=== PATIENT | female | born 1940 | race Hispanic/Latino ===

== ENCOUNTER 2018-03-12 21:28 | Emergency (ER) | payer MEDICARE ==
--- NOTE | 2018-03-12 22:06 | CT ---
CT BRAIN WITHOUT CONTRAST 03/12/18 HISTORY: Dizziness. COMPARISON: None. FINDINGS: No acute territorial infarct or hemorrhage. No midline shift or mass effect. Ventricular size and ext ra-axial CSF spaces are normal. The paranasal sinuses and mastoids are clear. IMPRESSION: No acute intracranial abnormality. POS: [facility]
[2018-03-12 22:19] LABS: #Eosinphils 0.1 thou/uL (0.0-0.7); #Lymphocytes 1.4 thou/uL (1.20-3.40); #Monocytes 0.3 thou/uL (0.11-0.59); #Neutrophils 3.2 thou/uL (1.40-6.50); %Basophils 0.2 % (0.0-1.0); %Eosinophils 1.8 % (0.0-10.0); %Lymphocytes 27.7 % (21.0-51.0); %Monocytes 6.7 % (0.0-10.0); %Neutrophils 63.6 % (42.0-75.0); Hemoglobin 13.2 g/dL (12.0-16.0); Mean Corpuscular HGB CONC 34.3 g/dL (32.0-36.0); Mean Corpuscular Hemoglobin 31.4 pg (27.0-31.0); Mean Corpuscular Volume 91.8 fl (81.0-99.0); Mean Platelet Volume 6.9 fL (7.4-10.4); Platelet Count 200 thou/uL (130-400); RBC Distribution Width 12.2 % (11.5-14.5); Red Blood Cell (RBC) Count 4.19 mill/uL (4.20-5.40)
[2018-03-12 22:37] LABS: ALT (SGPT) 12 U/L (8-55); AST (SGOT) 17 U/L (5-34); Albumin 4.5 g/dL (3.4-4.8); Alkaline Phosphatase 78 U/L (40-150); Anion Gap 16 mmol/L (10-20); BUN (Urea Nitrogen) 20 mg/dL (9.8-20.1); Bilirubin, Total 0.4 mg/dL (0.2-1.2); CK (CPK) 122 U/L (29-168); Calc. Creatinine Clearance 0 mL/min (70-130); Calcium 9.7 mg/dL (7.8-10.44); Carbon Dioxide 21 mmol/L (23-31); Chloride 103 mmol/L (98-107); Estimated GFR-MDRD 48; Glucose 141 mg/dL (83-110); Potassium 3.8 mmol/L (3.5-5.1); Protein, Total 7.5 g/dL (6.0-8.3); Sodium 136 mmol/L (136-145)
[2018-03-12 22:42] LABS: CKMB 2.2 ng/mL (0-6.6); Troponin I Less than 0.010 ng/mL (< 0.028)
== END 2018-03-12 23:20 | disposition home or self-care (01) ==
LOC: ERS 21:28
DX: R42 Dizziness and giddiness (principal); I10 Essential (primary) hypertension; E78.5 Hyperlipidemia, unspecified; I48.91 Unspecified atrial fibrillation; E11.9 Type 2 diabetes mellitus without complications; Z79.84 Long term (current) use of oral hypoglycemic drugs; Z79.899 Other long term (current) drug therapy
CPT/HCPCS: 36415; 70450; 80053; 82550; 82553; 84484; 85025

== ENCOUNTER 2018-07-30 12:48 | Emergency (ER) | payer MEDICARE ==
[2018-07-30] MEDS ORDERED: hydrOXYzine 25 MG TAB ONE (14:48)
== END 2018-07-30 14:49 | disposition home or self-care (01) ==
LOC: ERS 12:48
DX: S20.362A Insect bite (nonvenomous) of left front wall of thorax, initial encounter (principal); S20.361A Insect bite (nonvenomous) of right front wall of thorax, initial encounter; S40.861A Insect bite (nonvenomous) of right upper arm, initial encounter; B86 Scabies; E78.5 Hyperlipidemia, unspecified; I48.91 Unspecified atrial fibrillation; E11.9 Type 2 diabetes mellitus without complications; W57.XXXA Bitten or stung by nonvenomous insect and other nonvenomous arthropods, initial encounter
CPT/HCPCS: 99282

== ENCOUNTER 2018-08-02 00:20 | Emergency (ER) | payer MEDICARE, OTHER ==
[2018-08-02] MEDS ORDERED: diphenhydrAMINE 25 MG CAP ONE (00:49)
--- NOTE | 2018-08-02 08:28 | RAD ---
NECK SOFT TISSUES: Date: 08/02/18 HISTORY: Difficulty swallowing. COMPARISON: None. FINDINGS: Two views of the neck soft tissues shows no evidence of radiopaque foreign body. No prevertebral soft tissue swelling is seen. The epiglottis is normal in thickness without significant thickening. Mild degenerative changes are seen in the lower cervical spine. IMPRESSION: No significant soft tissue abnormality of the neck. POS: [facility]
== END 2018-08-02 01:55 | disposition home or self-care (01) ==
LOC: ERS 00:20
DX: F45.8 Other somatoform disorders (principal); I10 Essential (primary) hypertension; I48.91 Unspecified atrial fibrillation; E11.9 Type 2 diabetes mellitus without complications; Z79.84 Long term (current) use of oral hypoglycemic drugs; Z79.899 Other long term (current) drug therapy
CPT/HCPCS: 70360

== ENCOUNTER 2018-08-07 13:37 | Emergency (ER) | payer MEDICARE, OTHER ==
[2018-08-07 15:20] LABS: Bilirubin Negative (Negative); Blood, Urine Negative (Negative); Clarity CLEAR (Clear); Glucose, Urine (Dipstick) Negative (Negative); Leukocyte Negative (Negative); Nitrite Negative (Negative); Protein, Urine (Dipstick) Negative (Neg-Trace); Specific Gravity, Urine 1.008 (1.002-1.036); Urobilinogen 0.2 mg/dL (0.2-1.0)
[2018-08-07] MEDS ORDERED: hydrOXYzine 25 MG TAB PO SCH (15:30)
[2018-08-07 15:32] LABS: #Eosinphils 0.2 thou/uL (0.0-0.7); #Lymphocytes 1.4 thou/uL (1.20-3.40); #Monocytes 0.5 thou/uL (0.11-0.59); #Neutrophils 4.2 thou/uL (1.40-6.50); %Basophils 0.8 % (0.0-1.0); %Eosinophils 2.7 % (0.0-10.0); %Monocytes 7.2 % (0.0-10.0); %Neutrophils 67.3 % (42.0-75.0); Hemoglobin 14.5 g/dL (12.0-16.0); Mean Corpuscular Hemoglobin 31.2 pg (27.0-31.0); Mean Corpuscular Volume 94.7 fL (78.0-98.0); Mean Platelet Volume 7.2 fL (7.4-10.4); Platelet Count 256 thou/uL (130-400); RBC Distribution Width 12.1 % (11.5-14.5); Red Blood Cell (RBC) Count 4.64 mill/uL (4.20-5.40); White Blood Cell (WBC) Count 6.2 thou/uL (4.8-10.8)
[2018-08-07 15:53] LABS: ALT (SGPT) 20 U/L (8-55); AST (SGOT) 21 U/L (5-34); Albumin 4.7 g/dL (3.4-4.8); Alkaline Phosphatase 76 U/L (40-150); Anion Gap 13 mmol/L (10-20); BUN (Urea Nitrogen) 15 mg/dL (9.8-20.1); Bilirubin, Total 0.2 mg/dL (0.2-1.2); Calc. Creatinine Clearance 0 mL/min (70-130); Calcium 9.9 mg/dL (7.8-10.44); Carbon Dioxide 26 mmol/L (23-31); Chloride 99 mmol/L (98-107); Estimated GFR-MDRD 55; Globulin 3.2 g/dL (2.4-3.5); Glucose 117 mg/dL (83-110); Potassium 5.3 mmol/L (3.5-5.1); Protein, Total 7.9 g/dL (6.0-8.3); Sodium 133 mmol/L (136-145)
--- NOTE | 2018-08-07 16:03 | CT ---
CT OF BRAIN PERFORMED WITHOUT CONTRAST ENHANCEMENT: 08/07/18 HISTORY: Altered mental status, confusion. COMPARISON: 03/12/18 study. There is mild ventricular and sulcal prominence. This is fairly age appropriate. There is no signs of intracerebral hemorrhage or extra-axial fluid collections. Mastoid air cells and visualized sinuses are clear. IMPRESSION: No acute intracranial abnormalities. POS: [facility]
== END 2018-08-07 16:36 | disposition home or self-care (01) ==
LOC: ERS 13:37
DX: L29.9 Pruritus, unspecified (principal); B86 Scabies; R41.0 Disorientation, unspecified; I10 Essential (primary) hypertension; E78.5 Hyperlipidemia, unspecified; I48.91 Unspecified atrial fibrillation; E11.9 Type 2 diabetes mellitus without complications; Z79.899 Other long term (current) drug therapy; Z79.84 Long term (current) use of oral hypoglycemic drugs
CPT/HCPCS: 36415; 70450; 80053; 81003; 85025

== ENCOUNTER 2019-07-15 08:02 | Emergency (ER) | payer MEDICARE, OTHER ==
[2019-07-15 08:51] LABS: Anion Gap 13 mmol/L (10-20); BUN (Urea Nitrogen) 12 mg/dL (9.8-20.1); Calc. Creatinine Clearance 0 mL/min (70-130); Calcium 9.8 mg/dL (7.8-10.44); Carbon Dioxide 23 mmol/L (23-31); Chloride 104 mmol/L (98-107); Estimated GFR-MDRD 66; Glucose 130 mg/dL (83-110); Sodium 136 mmol/L (136-145)
== END 2019-07-15 09:14 ==
LOC: ERS 08:02
DX: Z00.00 Encounter for general adult medical examination without abnormal findings (principal); I10 Essential (primary) hypertension; I48.91 Unspecified atrial fibrillation; E11.9 Type 2 diabetes mellitus without complications; E78.5 Hyperlipidemia, unspecified
CPT/HCPCS: 36415; 80048; 99284

== ENCOUNTER 2019-07-17 03:34 | Emergency (ER) | payer MEDICARE ==
--- NOTE | 2019-07-17 07:47 | RAD ---
Chest 2 views HISTORY: Hemoptysis. COMPARISON: 03/05/2012. FINDINGS: Cardiac silhouette and pulmonary vasculature are unremarkable. Mediastinum is midline with aortic calcification. No confluent airspace consolidation, pneumothorax, or pleural fluid evident. Degenerative changes of thoracic spine have progressed. Chronic appearing compression of the superior endplates of the upper lumbar spine. IMPRESSION: No active cardiopulmonary abnormalities are demonstrated.
== END 2019-07-17 05:30 | disposition home or self-care (01) ==
LOC: ERS 03:34
DX: J18.9 Pneumonia, unspecified organism (principal); R04.2 Hemoptysis; I10 Essential (primary) hypertension; E78.5 Hyperlipidemia, unspecified; I49.9 Cardiac arrhythmia, unspecified; I48.91 Unspecified atrial fibrillation; E11.9 Type 2 diabetes mellitus without complications
CPT/HCPCS: 71046

== ENCOUNTER 2019-08-24 02:10 | Emergency (ER) | payer MEDICARE ==
[2019-08-24 03:05] LABS: #Basophils 0.1 thou/uL (0.0-0.2); #Eosinphils 0.1 thou/uL (0.0-0.7); #Lymphocytes 1.4 thou/uL (1.20-3.40); #Monocytes 0.3 thou/uL (0.11-0.59); #Neutrophils 1.8 thou/uL (1.40-6.50); %Basophils 1.5 % (0.0-1.0); %Eosinophils 3.8 % (0.0-10.0); %Monocytes 9.2 % (0.0-10.0); %Neutrophils 48.5 % (42.0-75.0); Hemoglobin 12.5 g/dL (12.0-16.0); Mean Corpuscular HGB CONC 33.7 g/dL (32.0-36.0); Mean Corpuscular Hemoglobin 31.2 pg (27.0-31.0); Mean Corpuscular Volume 92.4 fL (78.0-98.0); Mean Platelet Volume 7.3 fL (7.4-10.4); Platelet Count 197 thou/uL (130-400); RBC Distribution Width 12.2 % (11.5-14.5); Red Blood Cell (RBC) Count 4.02 mill/uL (4.20-5.40); White Blood Cell (WBC) Count 3.7 thou/uL (4.8-10.8)
[2019-08-24 03:27] LABS: ALT (SGPT) 13 U/L (8-55); AST (SGOT) 20 U/L (5-34); Albumin 4.3 g/dL (3.4-4.8); Alkaline Phosphatase 51 U/L (40-110); Anion Gap 15 mmol/L (10-20); BUN (Urea Nitrogen) 14 mg/dL (9.8-20.1); Bilirubin, Total 0.7 mg/dL (0.2-1.2); Calc. Creatinine Clearance 0 mL/min (70-130); Calcium 9.8 mg/dL (7.8-10.44); Carbon Dioxide 21 mmol/L (23-31); Chloride 103 mmol/L (98-107); Estimated GFR-MDRD 66; Globulin 2.8 g/dL (2.4-3.5); Glucose 120 mg/dL (83-110); Potassium 4.3 mmol/L (3.5-5.1); Protein, Total 7.1 g/dL (6.0-8.3); Sodium 135 mmol/L (136-145)
--- NOTE | 2019-08-24 07:51 | RAD ---
XR Chest 1 View Portable HISTORY: Palpitations COMPARISON: 07/17/2019 FINDINGS: The heart size is normal. The lungs are well expanded without focal areas of consolidation, pneumothorax or pleural effusions. IMPRESSION: No radiographic evidence of acute cardiopulmonary process.
== END 2019-08-24 03:50 | disposition home or self-care (01) ==
LOC: ERS 02:10
DX: R00.2 Palpitations (principal); I48.91 Unspecified atrial fibrillation; E11.9 Type 2 diabetes mellitus without complications; Z79.82 Long term (current) use of aspirin
CPT/HCPCS: 71045; 80053; 84484; 85025; 93005

== ENCOUNTER 2019-08-26 17:02 | Emergency (ER) | payer MEDICARE ==
[2019-08-26 18:02] LABS: #Eosinphils 0.1 thou/uL (0.0-0.7); #Lymphocytes 1.8 thou/uL (1.20-3.40); #Monocytes 0.4 thou/uL (0.11-0.59); #Neutrophils 2.4 thou/uL (1.40-6.50); %Basophils 0.2 % (0.0-1.0); %Eosinophils 2.4 % (0.0-10.0); %Lymphocytes 37.9 % (21.0-51.0); %Monocytes 8.1 % (0.0-10.0); %Neutrophils 51.5 % (42.0-75.0); Mean Corpuscular Hemoglobin 30.6 pg (27.0-31.0); Mean Platelet Volume 7.9 fL (7.4-10.4); Platelet Count 205 thou/uL (130-400); RBC Distribution Width 12.2 % (11.5-14.5); Red Blood Cell (RBC) Count 3.93 mill/uL (4.20-5.40); White Blood Cell (WBC) Count 4.7 thou/uL (4.8-10.8)
--- NOTE | 2019-08-26 18:08 | RAD ---
XR Chest 1 View Portable History: Chest pain Comparison: Radiograph 2 days prior Findings: The aorta is tortuous. Heart size is normal. No pneumothorax. No effusion. No acute osseous abnormality. Impression: No acute intrathoracic abnormality.
[2019-08-26 18:55] LABS: Bilirubin Negative (Negative); Blood, Urine Negative (Negative); Clarity Clear (Clear); Glucose, Urine (Dipstick) Normal (Negative); Leukocyte Negative Leu/uL (Negative); Nitrite Negative (Negative); Protein, Urine (Dipstick) Negative (Neg-Trace); Urobilinogen Normal mg/dL (Less than 2)
[2019-08-26 19:49] LABS: Albumin 4.6 g/dL (3.4-4.8)
[2019-08-26 19:50] LABS: Chloride 101 mmol/L (98-107); Potassium 4.4 mmol/L (3.5-5.1); Sodium 136 mmol/L (136-145)
[2019-08-26 19:51] LABS: Calcium 9.9 mg/dL (7.8-10.44)
[2019-08-26 19:52] LABS: Globulin 2.8 g/dL (2.4-3.5); Glucose 113 mg/dL (83-110); Protein, Total 7.4 g/dL (6.0-8.3)
[2019-08-26 19:53] LABS: Anion Gap 9 mmol/L (10-20); Bilirubin, Total 0.3 mg/dL (0.2-1.2); Carbon Dioxide 30 mmol/L (23-31)
[2019-08-26 19:54] LABS: Alkaline Phosphatase 75 U/L (40-110)
[2019-08-26 19:55] LABS: Calc. Creatinine Clearance 0 mL/min (70-130); Estimated GFR-MDRD 71
[2019-08-26 19:56] LABS: BUN (Urea Nitrogen) 16 mg/dL (9.8-20.1)
[2019-08-26 19:57] LABS: ALT (SGPT) 12 U/L (8-55); AST (SGOT) 16 U/L (5-34)
[2019-08-26 19:58] LABS: CK (CPK) 71 U/L (29-168); Lipase 11 U/L (8-78)
== END 2019-08-26 20:33 | disposition home or self-care (01) ==
LOC: ERS 17:02
DX: I48.20 Chronic atrial fibrillation, unspecified (principal); E11.9 Type 2 diabetes mellitus without complications; E78.5 Hyperlipidemia, unspecified; I10 Essential (primary) hypertension; Z79.84 Long term (current) use of oral hypoglycemic drugs; Z79.899 Other long term (current) drug therapy
CPT/HCPCS: 36415; 71045; 80053; 81003; 82550; 83690; 83735; 84484; 85025; 93005; 94760

== ENCOUNTER 2022-02-01 10:14 | Observation (INO) | payer MEDICARE, OTHER ==
[2022-02-01 10:49] LABS: #Lymphocytes 1.4 thou/uL (1.20-3.40); #Monocytes 0.3 thou/uL (0.11-0.59); #Neutrophils 2.8 thou/uL (1.40-6.50); %Basophils 0.3 % (0.0-1.0); %Lymphocytes 30.3 % (21.0-51.0); %Monocytes 7.1 % (0.0-10.0); %Neutrophils 61.3 % (42.0-75.0); Hemoglobin 13.9 g/dL (12.0-16.0); Mean Corpuscular HGB CONC 33.7 g/dL (32.0-36.0); Mean Corpuscular Volume 95.1 fL (78.0-98.0); Mean Platelet Volume 7.8 fL (7.4-10.4); Platelet Count 204 thou/uL (130-400); RBC Distribution Width 12.1 % (11.5-14.5); Red Blood Cell (RBC) Count 4.35 mill/uL (4.20-5.40); White Blood Cell (WBC) Count 4.5 thou/uL (4.8-10.8)
[2022-02-01 11:09] LABS: Acetaminophen Less than 10.0 mcg/mL (10.0-30.0); Alcohol Less than 10 mg/dL (Less than 10); Salicylate Less than 8.0 mg/dL (15.0-30.0)
[2022-02-01 11:12] LABS: ALT (SGPT) 13 U/L (8-55); AST (SGOT) 22 U/L (5-34); Albumin 4.3 g/dL (3.4-4.8); Alkaline Phosphatase 62 U/L (40-110); Anion Gap 17 mmol/L (10-20); BUN (Urea Nitrogen) 16 mg/dL (9.8-20.1); Bilirubin, Total 0.5 mg/dL (0.2-1.2); Calc. Creatinine Clearance 0 mL/min (70-130); Calcium 9.3 mg/dL (7.8-10.44); Carbon Dioxide 22 mmol/L (23-31); Chloride 101 mmol/L (98-107); Globulin 2.9 g/dL (2.4-3.5); Glucose 209 mg/dL (83-110); Lipase 7 U/L (8-78); Potassium 4.5 mmol/L (3.5-5.1); Protein, Total 7.2 g/dL (5.8-8.1); Sodium 135 mmol/L (136-145)
[2022-02-01 11:33] LABS: Bacteria/HPF None Seen HPF (None Seen); Bilirubin Negative (Negative); Blood, Urine Negative (Negative); Clarity Clear (Clear); Glucose, Urine (Dipstick) Normal (Negative); Ketone, Urine Negative (Negative); Leukocyte 75 Leu/uL (Negative); Nitrite Negative (Negative); Protein, Urine (Dipstick) Negative (Neg-Trace); RBC/HPF 0-3 HPF (0-3); Specific Gravity, Urine 1.014 (1.002-1.036); Squamous Epithelial 0-3 HPF (0-3); Urobilinogen Normal mg/dL (Less than 2); pH, Urine 6.5 (5.0-9.0)
[2022-02-01 11:39] LABS: Amphetamine Not Detected (NotDetected); Barbiturates Screen Not Detected (NotDetected); Benzodiazepine Screen Not Detected (NotDetected); Cocaine Metabolite Screen Not Detected (NotDetected); Methadone Not Detected (NotDetected); Methamphetamine Not Detected (NotDetected); Opiate Screen Not Detected (NotDetected); Oxycodone Screen Not Detected (NotDetected); Phencyclidine (PCP) Not Detected (NotDetected); THC/Cannabinoid Screen Not Detected (NotDetected); Tricyclic Screen Not Detected (NotDetected)
[2022-02-01] MEDS ORDERED: Aspirin Chewable 81 MG TAB ONE (12:16)
[2022-02-01] MEDS ORDERED: Acetaminophen 325 MG TAB PO PRN (13:26)
[2022-02-01] MEDS ORDERED: Senokot S 8.6-50 MG TAB PO PRN (13:26)
[2022-02-01] MEDS ORDERED: Calcium Carbonate 500 MG ChewTAB PO PRN (13:26)
[2022-02-01] MEDS ORDERED: Sodium Chloride 0.9% 1,000 ML IV SCH (13:30)
[2022-02-01] MEDS ORDERED: Nitroglycerin 0.4 MG TAB (25 Tab Bottle) SL PRN (13:34)
[2022-02-01 14:09] VITALS: BMI 26.7
[2022-02-01] MEDS ORDERED: Dextrose 5% in Water 1,000 ML IV PRN (14:18)
[2022-02-01] MEDS ORDERED: Insulin Regular 300 UNITS/3 ML VIAL SC PRN ×2 (14:18)
[2022-02-01] MEDS ORDERED: Dextrose 50% Abboject 50 ML SYRINGE SLOW IVP PRN (14:18)
[2022-02-01 14:28] LABS: Phosphorus 3.4 mg/dL (2.3-4.7)
[2022-02-01 14:46] LABS: Thyroid Stimulating Hormone 0.7675 uIU/mL (0.35-4.94)
[2022-02-01] MEDS ORDERED: Ondansetron ODT 4 MG TAB PO PRN (15:05)
[2022-02-01] MEDS ORDERED: Ondansetron PF 4 MG/2 ML Vial IVP PRN (15:05)
[2022-02-01 17:06] LABS: Troponin I Less than 0.010 ng/mL (< 0.028)
[2022-02-01] MEDS ORDERED: Cyanocobalamin (Vitamin B-12) 1,000 MCG TAB PO SCH (21:00)
[2022-02-01 23:59] LABS: SARS-CoV-2 PCR by NAA Not Detected (NotDetected)
[2022-02-02 05:12] LABS: #Eosinphils 0.1 thou/uL (0.0-0.7); #Lymphocytes 1.4 thou/uL (1.20-3.40); #Monocytes 0.3 thou/uL (0.11-0.59); #Neutrophils 2.8 thou/uL (1.40-6.50); %Basophils 0.3 % (0.0-1.0); %Eosinophils 1.8 % (0.0-10.0); %Lymphocytes 30.1 % (21.0-51.0); %Monocytes 7.1 % (0.0-10.0); %Neutrophils 60.7 % (42.0-75.0); Hemoglobin 13.3 g/dL (12.0-16.0); Mean Corpuscular HGB CONC 31.8 g/dL (32.0-36.0); Mean Corpuscular Hemoglobin 30.7 pg (27.0-31.0); Mean Corpuscular Volume 96.7 fL (78.0-98.0); Mean Platelet Volume 7.4 fL (7.4-10.4); Platelet Count 214 thou/uL (130-400); RBC Distribution Width 12.1 % (11.5-14.5); Red Blood Cell (RBC) Count 4.33 mill/uL (4.20-5.40); White Blood Cell (WBC) Count 4.6 thou/uL (4.8-10.8)
[2022-02-02 05:35] LABS: Anion Gap 13 mmol/L (10-20); BUN (Urea Nitrogen) 12 mg/dL (9.8-20.1); Calc. Creatinine Clearance 61 mL/min (70-130); Calcium 9.5 mg/dL (7.8-10.44); Carbon Dioxide 26 mmol/L (23-31); Chloride 104 mmol/L (98-107); Glucose 115 mg/dL (83-110); Potassium 4.6 mmol/L (3.5-5.1); Sodium 138 mmol/L (136-145)
[2022-02-02 09:00] VITALS: BP 163/81; TEMP 96.9
[2022-02-02] MEDS ORDERED: Aspirin 81 mg Enteric Coated Tablet PO SCH (09:00)
[2022-02-02] MEDS ORDERED: Enoxaparin Sodium 40 MG/0.4 ML SYRINGE SC SCH (09:00)
== END 2022-02-02 11:21 | disposition home or self-care (01) ==
LOC: ERS 10:14 → NEURO 12:29
PROVIDERS: ADMIT Internal Medicine; ATTEND Internal Medicine
DX: R55 Syncope and collapse (principal); I12.9 Hypertensive chronic kidney disease with stage 1 through stage 4 chronic kidney disease, or unspecified chronic kidney disease; E11.22 Type 2 diabetes mellitus with diabetic chronic kidney disease; N18.2 Chronic kidney disease, stage 2 (mild); E87.1 Hypo-osmolality and hyponatremia; E78.5 Hyperlipidemia, unspecified; G30.9 Alzheimer's disease, unspecified; F02.80 Dementia in other diseases classified elsewhere, unspecified severity, without behavioral disturbance, psychotic disturbance, mood disturbance, and anxiety; I08.3 Combined rheumatic disorders of mitral, aortic and tricuspid valves; Z79.82 Long term (current) use of aspirin; Z79.899 Other long term (current) drug therapy; Z88.0 Allergy status to penicillin; Z88.1 Allergy status to other antibiotic agents; Z88.4 Allergy status to anesthetic agent; Z88.8 Allergy status to other drugs, medicaments and biological substances; Z20.822 Contact with and (suspected) exposure to COVID-19
CPT/HCPCS: 36415; 36416; 70450; 71045; 80048; 80053; 80306; 80307; 81003; 81015; 82607; 82746; 83690; 83735; 84100; 84146; 84443; 84484; 85025; 87086; 93005; 93306; 93880; G0378; J7050; Q0162; U0003; U0005

== ENCOUNTER 2022-02-28 09:05 | Emergency (ER) | payer MEDICARE, OTHER ==
[2022-02-28 09:45] LABS: #Monocytes 0.2 thou/uL (0.11-0.59); #Neutrophils 3.2 thou/uL (1.40-6.50); %Basophils 0.2 % (0.0-1.0); %Lymphocytes 22.2 % (21.0-51.0); %Monocytes 5.2 % (0.0-10.0); %Neutrophils 71.3 % (42.0-75.0); Hemoglobin 13.6 g/dL (12.0-16.0); Mean Corpuscular HGB CONC 31.7 g/dL (32.0-36.0); Mean Corpuscular Hemoglobin 30.7 pg (27.0-31.0); Mean Corpuscular Volume 96.8 fL (78.0-98.0); Mean Platelet Volume 7.3 fL (7.4-10.4); Platelet Count 217 thou/uL (130-400); Red Blood Cell (RBC) Count 4.42 mill/uL (4.20-5.40); White Blood Cell (WBC) Count 4.5 thou/uL (4.8-10.8)
[2022-02-28 10:06] LABS: Anion Gap 13 mmol/L (10-20); BUN (Urea Nitrogen) 14 mg/dL (9.8-20.1); Calc. Creatinine Clearance 0 mL/min (70-130); Carbon Dioxide 24 mmol/L (23-31); Chloride 99 mmol/L (98-107); Potassium 4.1 mmol/L (3.5-5.1); Sodium 132 mmol/L (136-145)
[2022-02-28 10:07] LABS: ALT (SGPT) 12 U/L (8-55); AST (SGOT) 12 U/L (5-34); Albumin 4.2 g/dL (3.4-4.8); Alkaline Phosphatase 68 U/L (40-110); Bilirubin, Total 0.5 mg/dL (0.2-1.2); CK (CPK) 59 U/L (29-168); Calcium 9.4 mg/dL (7.8-10.44); Globulin 2.9 g/dL (2.4-3.5); Glucose 216 mg/dL (83-110); Magnesium 1.9 mg/dL (1.6-2.6); Protein, Total 7.1 g/dL (5.8-8.1)
[2022-02-28 10:37] LABS: Bilirubin Negative (Negative); Blood, Urine Negative (Negative); Clarity Clear (Clear); Glucose, Urine (Dipstick) 50 mg/dL (Negative); Ketone, Urine Negative (Negative); Leukocyte Negative Leu/uL (Negative); Nitrite Negative (Negative); Protein, Urine (Dipstick) Negative (Neg-Trace); Specific Gravity, Urine 1.014 (1.002-1.036); Urobilinogen Normal mg/dL (Less than 2); pH, Urine 6.5 (5.0-9.0)
== END 2022-02-28 11:24 | disposition home or self-care (01) ==
LOC: ERS 09:05
DX: R42 Dizziness and giddiness (principal); E11.9 Type 2 diabetes mellitus without complications; E87.1 Hypo-osmolality and hyponatremia; I48.91 Unspecified atrial fibrillation; E78.5 Hyperlipidemia, unspecified; I10 Essential (primary) hypertension; G30.9 Alzheimer's disease, unspecified; F02.80 Dementia in other diseases classified elsewhere, unspecified severity, without behavioral disturbance, psychotic disturbance, mood disturbance, and anxiety; Z79.82 Long term (current) use of aspirin
CPT/HCPCS: 36415; 36416; 51701; 80053; 81003; 82550; 83735; 85025; 93005; 96360

== ENCOUNTER 2022-09-25 15:50 | Inpatient (IN) | payer MEDICARE, MEDICAID ==
[2022-09-25] MEDS ORDERED: Ondansetron PF 4 MG/2 ML Vial IVP PRN (16:17)
[2022-09-25] MEDS ORDERED: TETANUS, DIPHTHERIA TOX,ADULT (TDVAX) 0.5 ML VIAL IM ONE (16:17)
[2022-09-25] MEDS ORDERED: hydrALAZINE 20 MG/ML VIAL SLOW IVP PRN ×3 (16:34→17:54)
[2022-09-25] MEDS ORDERED: Morphine 2 MG/ML VIAL SLOW IVP PRN (17:54)
[2022-09-25 18:14] VITALS: BMI 26.7
[2022-09-25] MEDS: Acetaminophen 500 MG TAB PO SCH (18:31)
[2022-09-25] MEDS: Sodium Chloride 0.9% 1,000 ML IV SCH (18:31)
[2022-09-25] MEDS ORDERED: Lisinopril 5 MG TAB PO SCH (18:48)
[2022-09-25] MEDS ORDERED: Dextrose 50% Abboject 50 ML SYRINGE SLOW IVP PRN (21:06)
[2022-09-25] MEDS ORDERED: HumaLOG 300 UNITS/3 ML VIAL SC PRN (21:06)
[2022-09-25] MEDS ORDERED: Dextrose 5% in Water 1,000 ML IV PRN (21:06)
[2022-09-25] MEDS ORDERED: Amlodipine 5 MG TAB PO SCH (21:15)
[2022-09-25] MEDS: Senokot S 8.6-50 MG TAB PO SCH (22:24)
[2022-09-25] MEDS: Famotidine 20 MG TAB PO SCH (22:25)
[2022-09-25 23:49] LABS: Bacteria/HPF None Seen HPF (None Seen); Bilirubin Negative (Negative); Blood, Urine Negative (Negative); CAUTI Indications for Culture Alt mental st,lethar; Clarity Clear (Clear); Glucose, Urine (Dipstick) Normal (Negative); Ketone, Urine Trace mg/dL (Negative); Leukocyte Negative Leu/uL (Negative); Nitrite Negative (Negative); Protein, Urine (Dipstick) Negative (Neg-Trace); RBC/HPF 0-3 HPF (0-3); Specific Gravity, Urine 1.014 (1.002-1.036); Squamous Epithelial 0-3 HPF (0-3); Urobilinogen Normal mg/dL (Less than 2); WBC/HPF 0-3 HPF (0-3); pH, Urine 6.5 (5.0-9.0)
[2022-09-25 23:51] LABS: Urine Culture Reflex No No
[2022-09-26] MEDS: Acetaminophen 500 MG TAB PO SCH ×5 (00:02→17:51)
[2022-09-26 05:47] LABS: #Eosinphils 0.1 thou/uL (0.0-0.7); #Monocytes 0.4 thou/uL (0.11-0.59); #Neutrophils 3.9 thou/uL (1.40-6.50); %Basophils 0.1 % (0.0-1.0); %Eosinophils 1.3 % (0.0-10.0); %Lymphocytes 17.9 % (21.0-51.0); %Monocytes 7.4 % (0.0-10.0); %Neutrophils 73.3 % (42.0-75.0); Hemoglobin 12.8 g/dL (12.0-16.0); Mean Corpuscular HGB CONC 32.5 g/dL (32.0-36.0); Mean Corpuscular Hemoglobin 30.7 pg (27.0-31.0); Mean Corpuscular Volume 94.5 fl (78.0-98.0); Mean Platelet Volume 7.6 fL (7.4-10.4); Platelet Count 183 10x3/uL (130-400); Red Blood Cell (RBC) Count 4.15 mill/uL (4.20-5.40); White Blood Cell (WBC) Count 5.3 10x3/uL (4.8-10.8)
[2022-09-26 05:57] LABS: Phosphorus 2.6 mg/dL (2.3-4.7)
[2022-09-26 05:58] LABS: PTT 29.6 sec (22.9-36.1); Prothrombin Time 13.1 sec (12.0-14.7)
[2022-09-26 05:59] LABS: Lactic Acid 0.9 mmol/L (0.5-2.2)
[2022-09-26 06:00] LABS: Anion Gap 12 mmol/L (10-20); BUN (Urea Nitrogen) 9 mg/dL (9.8-20.1); Calc. Creatinine Clearance 76 mL/min (70-130); Carbon Dioxide 20 mmol/L (23-31); Chloride 98 mmol/L (98-107); Estimated GFR 87; Glucose 125 mg/dL (83-110); Magnesium 1.8 mg/dL (1.6-2.6); Potassium 3.2 mmol/L (3.5-5.1)
[2022-09-26 06:05] LABS: Sodium 127 mmol/L (136-145)
[2022-09-26] MEDS: Sodium Chloride 1 GM TAB PO SCH ×3 (06:45→22:04)
[2022-09-26] MEDS: Potassium Chloride 20 MEQ in Premix Bag 1 BAG IVPB SCH ×2 (07:21→18:51)
[2022-09-26] MEDS: Sodium Chloride 0.9% 1,000 ML IV SCH (07:27)
[2022-09-26] MEDS ORDERED: Potassium Phosphate 15 MMOL, Magnesium Sulfate 2 GM in Sodium Chloride 0.9% 250 ML 250 ML IVPB SCH (08:45)
[2022-09-26] MEDS ORDERED: Lisinopril 5 MG TAB PO SCH (09:00)
[2022-09-26] MEDS ORDERED: Amlodipine 5 MG TAB PO SCH (09:00)
[2022-09-26] MEDS: Famotidine 20 MG TAB PO SCH ×2 (10:29→22:04)
[2022-09-26] MEDS: Senokot S 8.6-50 MG TAB PO SCH ×2 (10:30→22:04)
[2022-09-26] MEDS: Polyethylene Glycol 3350 17 GM Packet PO SCH (10:30)
[2022-09-27] MEDS: Acetaminophen 500 MG TAB PO SCH ×6 (00:10→22:58)
[2022-09-27] MEDS: Sodium Chloride 1 GM TAB PO SCH ×4 (06:04→22:58)
[2022-09-27] MEDS: Amlodipine 10 MG TAB PO SCH (09:31)
[2022-09-27] MEDS: Senokot S 8.6-50 MG TAB PO SCH ×2 (09:31→20:49)
[2022-09-27] MEDS: Famotidine 20 MG TAB PO SCH ×2 (09:32→20:49)
[2022-09-27] MEDS: Polyethylene Glycol 3350 17 GM Packet PO SCH (09:32)
[2022-09-28 01:41] LABS: Bilirubin Negative (Negative); Blood, Urine Negative (Negative); Clarity Clear (Clear); Glucose, Urine (Dipstick) Normal (Negative); Ketone, Urine Trace mg/dL (Negative); Leukocyte 25 Leu/uL (Negative); Nitrite Negative (Negative); Protein, Urine (Dipstick) Negative (Neg-Trace); RBC/HPF 0-3 HPF (0-3); Squamous Epithelial None Seen HPF (0-3); Urobilinogen Normal mg/dL (Less than 2)
[2022-09-28 01:42] LABS: Bacteria/HPF 1+ HPF (None Seen)
[2022-09-28] MEDS: Acetaminophen 500 MG TAB PO SCH ×4 (06:05→22:25)
[2022-09-28] MEDS: Sodium Chloride 1 GM TAB PO SCH ×3 (06:06→22:25)
[2022-09-28] MEDS: Amlodipine 10 MG TAB PO SCH (09:58)
[2022-09-28] MEDS: Senokot S 8.6-50 MG TAB PO SCH ×2 (09:59→22:25)
[2022-09-28] MEDS: Polyethylene Glycol 3350 17 GM Packet PO SCH (09:59)
[2022-09-28] MEDS: Famotidine 20 MG TAB PO SCH ×2 (09:59→22:24)
[2022-09-28 11:53] LABS: #Eosinphils 0.1 thou/uL (0.0-0.7); #Lymphocytes 0.7 thou/uL (1.20-3.40); #Monocytes 0.6 thou/uL (0.11-0.59); #Neutrophils 4.9 thou/uL (1.40-6.50); %Basophils 0.2 % (0.0-1.0); %Lymphocytes 11.4 % (21.0-51.0); %Monocytes 9.2 % (0.0-10.0); %Neutrophils 77.2 % (42.0-75.0); Hemoglobin 12.8 g/dL (12.0-16.0); Mean Corpuscular HGB CONC 33.9 g/dL (32.0-36.0); Mean Corpuscular Hemoglobin 31.8 pg (27.0-31.0); Mean Platelet Volume 7.7 fL (7.4-10.4); Platelet Count 204 10x3/uL (130-400); RBC Distribution Width 12.3 % (11.5-14.5); Red Blood Cell (RBC) Count 4.01 mill/uL (4.20-5.40); White Blood Cell (WBC) Count 6.4 10x3/uL (4.8-10.8)
[2022-09-28 12:01] LABS: Anion Gap 12 mmol/L (10-20); BUN (Urea Nitrogen) 15 mg/dL (9.8-20.1); Calc. Creatinine Clearance 68 mL/min (70-130); Calcium 9.3 mg/dL (7.8-10.44); Carbon Dioxide 25 mmol/L (23-31); Chloride 96 mmol/L (98-107); Estimated GFR 80; Glucose 137 mg/dL (83-110); Magnesium 1.9 mg/dL (1.6-2.6); Phosphorus 2.9 mg/dL (2.3-4.7); Potassium 3.8 mmol/L (3.5-5.1); Sodium 129 mmol/L (136-145)
[2022-09-29] MEDS: Sodium Chloride 1 GM TAB PO SCH ×3 (06:04→23:14)
[2022-09-29] MEDS: Acetaminophen 500 MG TAB PO SCH ×4 (06:04→23:14)
[2022-09-29] MEDS: Famotidine 20 MG TAB PO SCH ×2 (09:18→22:24)
[2022-09-29] MEDS: Senokot S 8.6-50 MG TAB PO SCH ×2 (09:18→22:19)
[2022-09-29] MEDS: Polyethylene Glycol 3350 17 GM Packet PO SCH (09:18)
[2022-09-29] MEDS: Amlodipine 10 MG TAB PO SCH (09:19)
[2022-09-29] MEDS ORDERED: Vancomycin 1.5 GRAM/300 ML BAG 1.5 GM in Premix Bag 1 BAG IVPB SCH (12:00)
[2022-09-29] MEDS: cefTRIAXone\\ROCEPHIN 1 GM in Sodium Chloride 0.9% 100 ML IVPB SCH (12:34)
[2022-09-29] MEDS: Milk Of Magnesia 30 ML UDCUP PO SCH (12:35)
[2022-09-29] MEDS: Bisacodyl 10 MG SUPP PR SCH (16:12)
[2022-09-29] MEDS: Donepezil HCl 5 MG TAB PO SCH (23:17)
[2022-09-30] MEDS: Acetaminophen 500 MG TAB PO SCH ×4 (05:32→23:52)
[2022-09-30] MEDS: Sodium Chloride 1 GM TAB PO SCH ×3 (05:43→23:52)
[2022-09-30] MEDS: Amlodipine 10 MG TAB PO SCH (09:00)
[2022-09-30] MEDS: Milk Of Magnesia 30 ML UDCUP PO SCH (09:00)
[2022-09-30] MEDS: Bisacodyl 10 MG SUPP PR SCH (09:00)
[2022-09-30] MEDS: Senokot S 8.6-50 MG TAB PO SCH ×2 (11:15→21:39)
[2022-09-30] MEDS: Famotidine 20 MG TAB PO SCH ×2 (11:15→21:39)
[2022-09-30] MEDS: Polyethylene Glycol 3350 17 GM Packet PO SCH (11:15)
[2022-09-30] MEDS: cefTRIAXone\\ROCEPHIN 1 GM in Sodium Chloride 0.9% 100 ML IVPB SCH (12:50)
[2022-09-30] MEDS: Donepezil HCl 5 MG TAB PO SCH (21:39)
[2022-10-01] MEDS: Acetaminophen 500 MG TAB PO SCH ×4 (06:11→23:16)
[2022-10-01] MEDS: Sodium Chloride 1 GM TAB PO SCH ×3 (06:12→22:04)
[2022-10-01] MEDS: Senokot S 8.6-50 MG TAB PO SCH ×2 (09:42→16:39)
[2022-10-01] MEDS: Polyethylene Glycol 3350 17 GM Packet PO SCH ×2 (09:42→10:08)
[2022-10-01] MEDS: Bisacodyl 10 MG SUPP PR SCH (09:42)
[2022-10-01] MEDS: Famotidine 20 MG TAB PO SCH ×2 (10:08→20:11)
[2022-10-01] MEDS: Milk Of Magnesia 30 ML UDCUP PO SCH (10:08)
[2022-10-01] MEDS: Amlodipine 10 MG TAB PO SCH (10:08)
[2022-10-01] MEDS: Donepezil HCl 5 MG TAB PO SCH (20:11)
[2022-10-01] MEDS ORDERED: Melatonin 3 MG TAB PO PRN (21:42)
[2022-10-02] MEDS: Acetaminophen 500 MG TAB PO SCH ×3 (06:07→18:21)
[2022-10-02] MEDS: Sodium Chloride 1 GM TAB PO SCH ×2 (06:08→15:30)
[2022-10-02] MEDS: Senokot S 8.6-50 MG TAB PO SCH (10:10)
[2022-10-02] MEDS: Milk Of Magnesia 30 ML UDCUP PO SCH (10:11)
[2022-10-02] MEDS: Polyethylene Glycol 3350 17 GM Packet PO SCH (10:11)
[2022-10-02] MEDS: Famotidine 20 MG TAB PO SCH (10:11)
[2022-10-02] MEDS: Bisacodyl 10 MG SUPP PR SCH (12:23)
[2022-10-02 16:43] VITALS: BP 136/71; TEMP 98.9
== END 2022-10-02 18:15 | DRG 83 ==
LOC: SURG A 17:15
PROVIDERS: ADMIT Surgery; ATTEND Surgery
DX: S06.5XAA Traumatic subdural hemorrhage with loss of consciousness status unknown, initial encounter (principal); N39.0 Urinary tract infection, site not specified; W18.30XA Fall on same level, unspecified, initial encounter; Z20.822 Contact with and (suspected) exposure to COVID-19; I48.91 Unspecified atrial fibrillation; G30.9 Alzheimer's disease, unspecified; F02.80 Dementia in other diseases classified elsewhere, unspecified severity, without behavioral disturbance, psychotic disturbance, mood disturbance, and anxiety; K59.00 Constipation, unspecified; R40.2412 Glasgow coma scale score 13-15, at arrival to emergency department; E11.649 Type 2 diabetes mellitus with hypoglycemia without coma; Z79.82 Long term (current) use of aspirin; Z79.899 Other long term (current) drug therapy
CPT/HCPCS: 36415; 36416; 70450; 71045; 72125; 80048; 81001; 81003; 81015; 82140; 83605; 83735; 84100; 85025; 85610; 85730; 87040; 87077; 87086; 87186; 93970; 94640; J0696; J2405; J3475; J3480; J3490; J7050; J7620; U0003; U0005

== ENCOUNTER 2023-01-24 12:36 | Inpatient (IN) | payer OTHER, MEDICARE, MEDICAID ==
[2023-01-24] MEDS ORDERED: fentaNYL 50 mcg/mL 1 mL Vial ONE ×2 (13:22→19:16)
[2023-01-24 13:31] LABS: #Basophils 0.1 thou/uL (0.0-0.2); #Eosinphils 0.1 thou/uL (0.0-0.7); #Lymphocytes 0.3 thou/uL (1.20-3.40); #Monocytes 0.5 thou/uL (0.11-0.59); #Neutrophils 5.7 thou/uL (1.40-6.50); %Basophils 1.2 % (0.0-1.0); %Eosinophils 0.8 % (0.0-10.0); %Lymphocytes 4.1 % (21.0-51.0); %Monocytes 7.3 % (0.0-10.0); %Neutrophils 86.6 % (42.0-75.0); Hemoglobin 14.2 g/dL (12.0-16.0); Mean Corpuscular HGB CONC 33.6 g/dL (32.0-36.0); Mean Corpuscular Hemoglobin 30.5 pg (27.0-31.0); Mean Corpuscular Volume 90.9 fl (78.0-98.0); Mean Platelet Volume 7.2 fL (7.4-10.4); Platelet Count 214 10x3/uL (130-400); RBC Distribution Width 12.7 % (11.5-14.5); Red Blood Cell (RBC) Count 4.64 mill/uL (4.20-5.40); White Blood Cell (WBC) Count 6.6 10x3/uL (4.8-10.8)
[2023-01-24] MEDS ORDERED: Acetaminophen 500 MG TAB ONE ×2 (13:42→13:45)
[2023-01-24] MEDS ORDERED: Acetaminophen 650 MG Suppository ONE (13:47)
[2023-01-24 13:51] LABS: ALT (SGPT) 9 U/L (8-55); AST (SGOT) 14 U/L (5-34); Albumin 4.3 g/dL (3.4-4.8); Alkaline Phosphatase 70 U/L (40-110); Anion Gap 16 mmol/L (10-20); BUN (Urea Nitrogen) 20 mg/dL (9.8-20.1); Bilirubin, Total 0.4 mg/dL (0.2-1.2); CK (CPK) 68 U/L (29-168); Calc. Creatinine Clearance 0 mL/min (70-130); Calcium 9.9 mg/dL (7.8-10.44); Carbon Dioxide 19 mmol/L (23-31); Chloride 102 mmol/L (98-107); Estimated GFR 63; Globulin 3.5 g/dL (2.4-3.5); Glucose 145 mg/dL (83-110); Potassium 4.4 mmol/L (3.5-5.1); Protein, Total 7.8 g/dL (5.8-8.1); Sodium 133 mmol/L (136-145)
[2023-01-24 14:15] LABS: Bilirubin Negative (Negative); Blood, Urine Negative (Negative); Clarity Clear (Clear); Glucose, Urine (Dipstick) Normal (Negative); Ketone, Urine Negative (Negative); Leukocyte Negative Leu/uL (Negative); Nitrite Negative (Negative); Protein, Urine (Dipstick) Negative (Neg-Trace); Specific Gravity, Urine 1.019 (1.002-1.036); Urobilinogen Normal mg/dL (Less than 2)
[2023-01-24] MEDS ORDERED: Boostrix 0.5 ML (Tdap) VIAL (>/=7 yrs of age) ONE (14:23)
[2023-01-24] MEDS ORDERED: Insulin Regular 300 UNITS/3 ML VIAL SC PRN ×2 (15:49)
[2023-01-24] MEDS ORDERED: Acetaminophen 325 MG TAB PO PRN (15:49)
[2023-01-24] MEDS ORDERED: Dextrose 50% Abboject 50 ML SYRINGE SLOW IVP PRN (15:49)
[2023-01-24] MEDS ORDERED: Ipratropium/Albuterol 3 ML NEB NEB PRN (15:49)
[2023-01-24] MEDS ORDERED: Dextrose 5% in Water 1,000 ML IV PRN (15:49)
[2023-01-24] MEDS ORDERED: Ondansetron PF 4 MG/2 ML Vial IVP PRN (15:49)
[2023-01-24 15:57] LABS: PTT 26.8 sec (22.9-36.1); Prothrombin Time 13.2 sec (12.0-14.7)
[2023-01-24] MEDS: hydrALAZINE 20 MG/ML VIAL SLOW IVP PRN ×2 (16:20→22:41)
[2023-01-24] MEDS: Sodium Chloride 0.9% 1,000 ML IV SCH ×2 (16:45→22:48)
[2023-01-24 16:51] VITALS: BMI 26.9
[2023-01-24] MEDS ORDERED: Clindamycin/D5W 900 MG in Premix Bag 1 BAG IVPB SCH (18:30)
[2023-01-24] MEDS ORDERED: Morphine 2 MG/ML VIAL SLOW IVP PRN (18:54)
[2023-01-24] MEDS ORDERED: Lidocaine 1% (PF) 30 ML VIAL ONE (19:07)
[2023-01-24] MEDS ORDERED: Neomycin-Polymyxin 1 ML AMP ONE (19:07)
[2023-01-24] MEDS ORDERED: Thrombin 5000 UNITS/5 ML VIAL ONE (19:07)
[2023-01-24] MEDS ORDERED: EPINEPHrine 1 MG/ML AMP ONE (19:08)
[2023-01-24] MEDS ORDERED: fentaNYL PF 100 MCG/2 ML SYRINGE ONE (19:16)
[2023-01-24] MEDS ORDERED: PROPOFOL 200 MG/20 ML VIAL ONE (19:40)
[2023-01-24] MEDS ORDERED: Ondansetron PF 4 MG/2 ML Vial ONE (19:40)
[2023-01-24] MEDS ORDERED: GLYCOPYRROLATE/PF 0.2 MG/ML VIAL ONE (19:40)
[2023-01-24] MEDS ORDERED: NEOSTIGMINE 3 MG/3 ML SYR 3 MG/3 ML SYRINGE ONE (19:40)
[2023-01-24] MEDS ORDERED: Rocuronium Bromide 10 MG/ML (10ML VIAL) ONE (19:40)
[2023-01-24] MEDS ORDERED: Phenylephrine 10 MG/ML VIAL ONE (19:40)
[2023-01-24] MEDS ORDERED: Dexamethasone 20 MG/5 ML VIAL ONE (19:40)
[2023-01-24] MEDS ORDERED: Levofloxacin 500 mg/D5W 100 ml Premix Bag ONE (20:01)
[2023-01-24] MEDS ORDERED: Vancomycin 500 MG VIAL (PEDI) ONE (20:01)
[2023-01-24] MEDS ORDERED: Clindamycin/D5W 900 mg/50 ml Premix Bag ONE (20:01)
[2023-01-24] MEDS: Famotidine/PF 20 mg/2ml Vial SLOW IVP SCH (22:42)
[2023-01-25] MEDS ORDERED: Diazepam 10 MG/2 ML SYRINGE IVP SCH (00:15)
[2023-01-25 03:57] LABS: #Lymphocytes 0.4 thou/uL (1.20-3.40); #Monocytes 0.2 thou/uL (0.11-0.59); #Neutrophils 4.3 thou/uL (1.40-6.50); %Eosinophils 0.1 % (0.0-10.0); %Lymphocytes 7.6 % (21.0-51.0); %Monocytes 3.1 % (0.0-10.0); %Neutrophils 89.1 % (42.0-75.0); Hemoglobin 13.6 g/dL (12.0-16.0); Mean Corpuscular HGB CONC 34.6 g/dL (32.0-36.0); Mean Corpuscular Hemoglobin 31.8 pg (27.0-31.0); Mean Corpuscular Volume 91.9 fl (78.0-98.0); Mean Platelet Volume 7.4 fL (7.4-10.4); Platelet Count 210 10x3/uL (130-400); RBC Distribution Width 12.8 % (11.5-14.5); Red Blood Cell (RBC) Count 4.26 mill/uL (4.20-5.40); White Blood Cell (WBC) Count 4.8 10x3/uL (4.8-10.8)
[2023-01-25 04:18] LABS: Anion Gap 14 mmol/L (10-20); BUN (Urea Nitrogen) 16 mg/dL (9.8-20.1); Calc. Creatinine Clearance 58 mL/min (70-130); Carbon Dioxide 21 mmol/L (23-31); Chloride 101 mmol/L (98-107); Estimated GFR 70; Glucose 190 mg/dL (83-110); Magnesium 1.8 mg/dL (1.6-2.6); Potassium 4.1 mmol/L (3.5-5.1); Sodium 132 mmol/L (136-145)
[2023-01-25] MEDS: Clindamycin/D5W 900 MG in Premix Bag 1 BAG IVPB SCH ×3 (05:20→20:44)
[2023-01-25] MEDS ORDERED: Magnesium 2 GM/50 ML(in water) 2 GM in Premix Bag 1 BAG IVPB SCH (08:00)
[2023-01-25] MEDS: Famotidine/PF 20 mg/2ml Vial SLOW IVP SCH ×2 (08:48→20:45)
[2023-01-25] MEDS ORDERED: Sodium Phosphate 30 MMOL in Sodium Chloride 0.9% 250 ML 250 ML IVPB SCH (09:00)
[2023-01-25] MEDS: Sodium Chloride 0.9% 1,000 ML IV SCH (20:00)
[2023-01-25] MEDS: hydrALAZINE 20 MG/ML VIAL SLOW IVP PRN (20:44)
[2023-01-26] MEDS: Clindamycin/D5W 900 MG in Premix Bag 1 BAG IVPB SCH ×2 (04:55→13:09)
[2023-01-26] MEDS: Sodium Chloride 0.9% 1,000 ML IV SCH (07:57)
[2023-01-26] MEDS: Famotidine/PF 20 mg/2ml Vial SLOW IVP SCH ×2 (08:22→21:53)
[2023-01-26] MEDS: Sodium Chloride 1 GM TAB PO SCH ×2 (08:48→16:08)
[2023-01-26] MEDS: hydrALAZINE 20 MG/ML VIAL SLOW IVP PRN (13:08)
[2023-01-26] MEDS: Donepezil HCl 5 MG TAB PO SCH (21:53)
[2023-01-27] MEDS: Sodium Chloride 1 GM TAB PO SCH ×3 (00:16→14:31)
[2023-01-27] MEDS: hydrALAZINE 20 MG/ML VIAL SLOW IVP PRN (01:05)
[2023-01-27 04:26] LABS: Anion Gap 15 mmol/L (10-20); BUN (Urea Nitrogen) 24 mg/dL (9.8-20.1); Calc. Creatinine Clearance 59 mL/min (70-130); Carbon Dioxide 18 mmol/L (23-31); Chloride 105 mmol/L (98-107); Estimated GFR 71; Glucose 128 mg/dL (83-110); Magnesium 2.1 mg/dL (1.6-2.6); Phosphorus 2.3 mg/dL (2.3-4.7); Sodium 134 mmol/L (136-145)
[2023-01-27] MEDS: Senokot S 8.6-50 MG TAB PO SCH ×2 (09:58→20:25)
[2023-01-27] MEDS: Donepezil HCl 5 MG TAB PO SCH (20:25)
[2023-01-28] MEDS: Sodium Chloride 1 GM TAB PO SCH ×2 (00:11→09:04)
[2023-01-28] MEDS: Senokot S 8.6-50 MG TAB PO SCH (09:04)
[2023-01-28 11:54] VITALS: BP 115/61; TEMP 97.9
== END 2023-01-28 12:34 | DRG 26 ==
LOC: ERS 12:36 → CCU 15:14 → SJJU 01-27 16:24
PROVIDERS: ADMIT Surgery; ATTEND Surgery
PROC: 00C43ZZ Extirpation of Matter from Intracranial Subdural Space, Percutaneous Approach (ICD-10-PCS; principal; 2023-01-24)
DX: S06.5X0A Traumatic subdural hemorrhage without loss of consciousness, initial encounter (principal); S22.31XA Fracture of one rib, right side, initial encounter for closed fracture; I48.91 Unspecified atrial fibrillation; E11.9 Type 2 diabetes mellitus without complications; E78.5 Hyperlipidemia, unspecified; I10 Essential (primary) hypertension; G30.9 Alzheimer's disease, unspecified; W19.XXXA Unspecified fall, initial encounter; F32.A Depression, unspecified; F02.80 Dementia in other diseases classified elsewhere, unspecified severity, without behavioral disturbance, psychotic disturbance, mood disturbance, and anxiety; Z90.49 Acquired absence of other specified parts of digestive tract; Z98.51 Tubal ligation status; Z98.890 Other specified postprocedural states; Z88.0 Allergy status to penicillin; Z88.1 Allergy status to other antibiotic agents; Z88.8 Allergy status to other drugs, medicaments and biological substances; Z91.81 History of falling; Y92.89 Other specified places as the place of occurrence of the external cause
CPT/HCPCS: 36415; 36416; 51701; 70450; 71045; 72125; 72170; 80048; 80053; 81003; 82550; 83735; 84100; 84484; 85025; 85610; 85730; 86850; 86900; 86901; 90471; 90715; 93005; 96374; G0390; J0171; J0360; J1100; J1650; J1956; J2001; J2370; J2405; J2704; J3010; J3371; J3475; J3490; J7050; S0028

== ENCOUNTER 2023-05-02 11:31 | Emergency (ER) | payer MEDICAID, MEDICARE ==
[2023-05-02] MEDS ORDERED: Haloperidol Lactate 5 MG/ML VIAL ONE (12:00)
[2023-05-02 12:30] LABS: #Eosinphils 0.1 thou/uL (0.0-0.7); #Monocytes 0.5 thou/uL (0.11-0.59); #Neutrophils 2.2 thou/uL (1.40-6.50); %Basophils 0.6 % (0.0-1.0); %Eosinophils 2.5 % (0.0-10.0); %Lymphocytes 46.8 % (21.0-51.0); %Monocytes 8.9 % (0.0-10.0); Hemoglobin 13.6 g/dL (12.0-16.0); Mean Corpuscular HGB CONC 31.9 g/dL (32.0-36.0); Mean Corpuscular Hemoglobin 28.7 pg (27.0-31.0); Mean Corpuscular Volume 90.1 fl (78.0-98.0); Mean Platelet Volume 9.9 fL (7.4-10.4); Platelet Count 219 10x3/uL (130-400); RBC Distribution Width 14.2 % (11.5-14.5); Red Blood Cell (RBC) Count 4.74 mill/uL (4.20-5.40); White Blood Cell (WBC) Count 5.3 10x3/uL (4.8-10.8)
[2023-05-02 13:04] LABS: Acetaminophen Less than 10 mcg/mL (10.0-30.0); Alcohol Less than 10.0 mg/dL (Less than 10); Anion Gap 14 mmol/L (10-20); BUN (Urea Nitrogen) 23 mg/dL (9.8-20.1); Calc. Creatinine Clearance 0 mL/min (70-130); Carbon Dioxide 27 mmol/L (23-31); Chloride 102 mmol/L (98-107); Lipase 20 U/L (8-78); Potassium 4.7 mmol/L (3.5-5.1); Salicylate Less than 8.0 mg/dL (15.0-30.0); Sodium 138 mmol/L (136-145)
[2023-05-02 13:05] LABS: ALT (SGPT) 12 U/L (8-55); AST (SGOT) 10 U/L (5-34); Albumin 4.5 g/dL (3.4-4.8); Alkaline Phosphatase 83 U/L (40-110); Bilirubin, Total 0.4 mg/dL (0.2-1.2); Calcium 10.1 mg/dL (7.8-10.44); Estimated GFR 64; Globulin 3.5 g/dL (2.4-3.5); Glucose 121 mg/dL (83-110)
[2023-05-02 13:06] LABS: Bacteria/HPF None Seen HPF (None Seen); Bilirubin Negative (Negative); Blood, Urine Negative (Negative); CAUTI Indications for Culture Alt mental st,lethar; Clarity Clear (Clear); Glucose, Urine (Dipstick) Normal (Negative); Ketone, Urine Negative (Negative); Leukocyte Negative Leu/uL (Negative); Nitrite Negative (Negative); Protein, Urine (Dipstick) Negative (Neg-Trace); RBC/HPF 0-3 HPF (0-3); Specific Gravity, Urine 1.013 (1.002-1.036); Squamous Epithelial 0-3 HPF (0-3); Urobilinogen Normal mg/dL (Less than 2); WBC/HPF 0-3 HPF (0-3); pH, Urine 5.5 (5.0-9.0)
[2023-05-02 13:11] LABS: Urine Culture Reflex No No
[2023-05-02 13:13] LABS: Amphetamine Not Detected (NotDetected); Barbiturates Screen Not Detected (NotDetected); Benzodiazepine Screen Not Detected (NotDetected); Cocaine Metabolite Screen Not Detected (NotDetected); Methadone Not Detected (NotDetected); Methamphetamine Not Detected (NotDetected); Opiate Screen Not Detected (NotDetected); Oxycodone Screen Not Detected (NotDetected); Phencyclidine (PCP) Not Detected (NotDetected); THC/Cannabinoid Screen Not Detected (NotDetected); Tricyclic Screen Not Detected (NotDetected)
== END 2023-05-02 15:40 | disposition home or self-care (01) ==
LOC: ERS 11:31
DX: R45.851 Suicidal ideations (principal); E11.9 Type 2 diabetes mellitus without complications; I10 Essential (primary) hypertension; E78.5 Hyperlipidemia, unspecified
CPT/HCPCS: 36415; 36416; 70450; 71045; 80053; 80306; 80307; 81001; 83690; 84443; 84484; 85025; 87086; 93005; 96372; J1630

== ENCOUNTER 2023-07-12 09:46 | Emergency (ER) | payer MEDICARE, OTHER, MEDICAID ==
[2023-07-12] MEDS ORDERED: Haloperidol Lactate 5 MG/ML VIAL ONE (09:59)
[2023-07-12 10:20] LABS: #Eosinphils 0.1 thou/uL (0.0-0.7); #Monocytes 0.2 thou/uL (0.11-0.59); #Neutrophils 2.5 thou/uL (1.40-6.50); %Basophils 0.3 % (0.0-1.0); %Eosinophils 1.6 % (0.0-10.0); %Lymphocytes 26.4 % (21.0-51.0); %Monocytes 6.1 % (0.0-10.0); %Neutrophils 65.3 % (42.0-75.0); Hematocrit 41.9 % (36.0-47.0); Hemoglobin 13.6 g/dL (12.0-16.0); Mean Corpuscular HGB CONC 32.5 g/dL (32.0-36.0); Mean Corpuscular Hemoglobin 29.6 pg (27.0-31.0); Mean Corpuscular Volume 91.3 fl (78.0-98.0); Mean Platelet Volume 9.3 fL (7.4-10.4); Platelet Count 231 10x3/uL (130-400); RBC Distribution Width 13.7 % (11.5-14.5); Red Blood Cell (RBC) Count 4.59 mill/uL (4.20-5.40); White Blood Cell (WBC) Count 3.8 10x3/uL (4.8-10.8)
[2023-07-12 10:57] LABS: ALT (SGPT) 12 U/L (8-55); AST (SGOT) 11 U/L (5-34); Albumin 4.4 g/dL (3.4-4.8); Alkaline Phosphatase 76 U/L (40-110); Anion Gap 15 mmol/L (10-20); BUN (Urea Nitrogen) 23 mg/dL (9.8-20.1); Bilirubin, Total 0.4 mg/dL (0.2-1.2); Calc. Creatinine Clearance 0 mL/min (70-130); Calcium 9.9 mg/dL (7.8-10.44); Carbon Dioxide 22 mmol/L (23-31); Chloride 104 mmol/L (98-107); Estimated GFR 52; Globulin 3.1 g/dL (2.4-3.5); Glucose 182 mg/dL (83-110); Potassium 3.9 mmol/L (3.5-5.1); Protein, Total 7.5 g/dL (5.8-8.1); Sodium 137 mmol/L (136-145)
[2023-07-12 11:01] LABS: Troponin I Less than 0.010 ng/mL (< 0.028)
[2023-07-12 12:45] LABS: Bacteria/HPF 4+ HPF (None Seen); Bilirubin Negative (Negative); Blood, Urine Negative (Negative); CAUTI Indications for Culture Alt mental st,lethar; Clarity Turbid (Clear); Glucose, Urine (Dipstick) Normal (Negative); Ketone, Urine Negative (Negative); Leukocyte 250 Leu/uL (Negative); Nitrite 2+ (Negative); Protein, Urine (Dipstick) Negative (Neg-Trace); RBC/HPF 0-3 HPF (0-3); Specific Gravity, Urine 1.021 (1.002-1.036); Urobilinogen Normal mg/dL (Less than 2); pH, Urine 5.5 (5.0-9.0)
[2023-07-12 12:46] LABS: Urine Culture Reflex Yes Yes
[2023-07-12 12:52] LABS: Amphetamine Not Detected (NotDetected); Barbiturates Screen Not Detected (NotDetected); Benzodiazepine Screen Not Detected (NotDetected); Cocaine Metabolite Screen Not Detected (NotDetected); Methadone Not Detected (NotDetected); Methamphetamine Not Detected (NotDetected); Opiate Screen Not Detected (NotDetected); Oxycodone Screen Not Detected (NotDetected); Phencyclidine (PCP) Not Detected (NotDetected); THC/Cannabinoid Screen Not Detected (NotDetected); Tricyclic Screen Not Detected (NotDetected)
== END 2023-07-12 14:39 | disposition home or self-care (01) ==
LOC: ERS 09:46
DX: N39.0 Urinary tract infection, site not specified (principal); R41.82 Altered mental status, unspecified; I48.91 Unspecified atrial fibrillation; E11.9 Type 2 diabetes mellitus without complications; E78.5 Hyperlipidemia, unspecified; I10 Essential (primary) hypertension
CPT/HCPCS: 36415; 70450; 80053; 80306; 81001; 82140; 83735; 84484; 85025; 87077; 87086; 87186; 93005; 96372; J1630

== ENCOUNTER 2023-11-05 07:32 | Emergency (ER) | payer OTHER, MEDICARE | END 2023-11-05 08:45 | LOC: ERS 07:32 | DX: R45.1 Restlessness and agitation (principal); E11.9 Type 2 diabetes mellitus without complications; I10 Essential (primary) hypertension | CPT/HCPCS: 99284 ==

== ENCOUNTER 2024-08-07 09:47 | Inpatient (IN) | payer MEDICARE, MEDICAID ==
[2024-08-07 11:28] LABS: #Basophils Less than 0.03 10x3/uL (0.0-0.2); %Basophils 0.1 % (0.0-1.0); %Eosinophils 0.7 % (0.0-10.0); %Monocytes 5.7 % (0.0-10.0); %Neutrophils 77.1 % (42.0-75.0); Hematocrit 42.5 % (36.0-47.0); Hemoglobin 13.6 g/dL (12.0-16.0); Mean Corpuscular HGB CONC 32.3 g/dL (32.0-36.0); Mean Corpuscular Hemoglobin 29.6 pg (27.0-31.0); Mean Corpuscular Volume 91.6 fL (78.0-98.0); Platelet Count 179 10x3/uL (130-400); RBC Distribution Width 14.4 % (11.5-14.5); Red Blood Cell (RBC) Count 4.53 mill/uL (4.20-5.40)
[2024-08-07 11:38] LABS: Actual Bicarbonate (HCO3v) 23.1 mEq/L (22-28); Analyzer IN Cardio ER; Base Excess -2.1 mEq/L (-2.0 to +3.0); Calcium, Ionized (venous) 1.16 mmol/L (1.16-1.32); Chloride (VBG) 103 mmol/L (98-106); Hematocrit-VBG 40 % (36.0-47.0); Hemoglobin (Hb) 13.6 g/dL (11.7-16.1); Potassium (VBG) 5.02 mmol/L (3.70-5.30); Sodium 139 mmol/L (133-146); pH (venous) 7.366 (7.32-7.43)
[2024-08-07 12:03] LABS: Acetaminophen Less than 10 mcg/mL (Less than 10); Alcohol Less than 10.0 mg/dL (Less than 10); CK (CPK) 129 U/L (29-168); Salicylate Less than 8.0 mg/dL (Less than 8.0)
[2024-08-07 12:07] LABS: Troponin I Less than 0.010 ng/mL (< 0.028)
[2024-08-07] MEDS ORDERED: Iopamidol-370 76% 500 ML MDV (1 ML CHARGE) ONE (12:44)
[2024-08-07 13:05] LABS: Bacteria/HPF None Seen HPF (None Seen); Bilirubin Negative (Negative); Blood, Urine Negative (Negative); CAUTI Indications for Culture Alt mental st,lethar; Clarity Clear (Clear); Glucose, Urine (Dipstick) Normal (Negative); Ketone, Urine Trace mg/dL (Negative); Leukocyte Negative Leu/uL (Negative); Nitrite Negative (Negative); Protein, Urine (Dipstick) Negative (Neg-Trace); RBC/HPF 0-3 HPF (0-3); Specific Gravity, Urine 1.022 (1.002-1.036); Squamous Epithelial 0-3 HPF (0-3); Urobilinogen Normal mg/dL (Less than 2); WBC/HPF 0-3 HPF (0-3); pH, Urine 5.5 (5.0-9.0)
[2024-08-07 13:08] LABS: Urine Culture Reflex No No
[2024-08-07 13:11] LABS: Amphetamine Not Detected (NotDetected); Barbiturates Screen Not Detected (NotDetected); Benzodiazepine Screen Not Detected (NotDetected); Cocaine Metabolite Screen Not Detected (NotDetected); Methadone Not Detected (NotDetected); Methamphetamine Not Detected (NotDetected); Opiate Screen Not Detected (NotDetected); Oxycodone Screen Not Detected (NotDetected); Phencyclidine (PCP) Not Detected (NotDetected); THC/Cannabinoid Screen Not Detected (NotDetected); Tricyclic Screen Not Detected (NotDetected)
[2024-08-07 13:18] LABS: ALT (SGPT) 11 U/L (8-55); AST (SGOT) 13 U/L (5-34); Albumin 3.8 g/dL (3.4-4.8); Alkaline Phosphatase 60 U/L (40-110); Anion Gap 14 mmol/L (10-20); BUN (Urea Nitrogen) 26 mg/dL (9.8-20.1); Bilirubin, Total 0.3 mg/dL (0.2-1.2); Calc. Creatinine Clearance 0 mL/min (70-130); Calcium 9.3 mg/dL (7.8-10.44); Carbon Dioxide 22 mmol/L (23-31); Chloride 108 mmol/L (98-107); Estimated GFR 71; Globulin 2.9 g/dL (2.4-3.5); Glucose 102 mg/dL (83-110); Potassium 4.6 mmol/L (3.5-5.1); Protein, Total 6.7 g/dL (5.8-8.1); Sodium 139 mmol/L (136-145)
[2024-08-07 13:23] LABS: Prothrombin Time 12.8 sec (12.0-14.7)
[2024-08-07 13:24] LABS: PTT 27.3 sec (22.9-36.1)
[2024-08-07] MEDS ORDERED: Ondansetron PF 4 MG/2 ML Vial IVP PRN (15:59)
[2024-08-07] MEDS ORDERED: Acetaminophen 325 MG TAB PO PRN (15:59)
[2024-08-07] MEDS ORDERED: Calcium Carbonate 500 MG ChewTAB PO PRN (15:59)
[2024-08-07] MEDS ORDERED: Insulin Lispro 100 UNIT/ML 10 ML VIAL SC PRN ×2 (15:59)
[2024-08-07] MEDS ORDERED: Dextrose 50% Abboject 50 ML SYRINGE SLOW IVP PRN (15:59)
[2024-08-07] MEDS ORDERED: Senokot S 8.6-50 MG TAB PO PRN (15:59)
[2024-08-07] MEDS ORDERED: Ondansetron ODT 4 MG TAB PO PRN (15:59)
[2024-08-07] MEDS ORDERED: Acetaminophen 650 MG Suppository PR PRN (15:59)
[2024-08-07] MEDS ORDERED: Dextrose 5% in Water 1,000 ML IV PRN (15:59)
[2024-08-07] MEDS ORDERED: Glucagon 1 MG/ML KIT IM PRN (15:59)
[2024-08-07] MEDS ORDERED: Sodium Chloride 0.9% 1,000 ML IV SCH (16:00)
[2024-08-07] MEDS ORDERED: Electrolyte Replacement Protocol 1 EACH FS SCH (16:15)
[2024-08-07] MEDS ORDERED: Electrolyte Replacement Protocol FS PRN (16:15)
[2024-08-07 16:50] LABS: Magnesium 2.2 mg/dL (1.6-2.6)
[2024-08-07 18:04] VITALS: BMI 29.8
[2024-08-07] MEDS: Lactated Ringer's 1,000 ML IV SCH (18:30)
[2024-08-07] MEDS: Donepezil HCl 10 MG TAB PO SCH (21:17)
[2024-08-07] MEDS: Divalproex Sodium 125 mg Sprinkle Capsule PO SCH (21:18)
[2024-08-07] MEDS: Famotidine 20 MG TAB PO SCH (21:18)
[2024-08-08 05:49] LABS: #Basophils Less than 0.03 10x3/uL (0.0-0.2); %Basophils 0.2 % (0.0-1.0); %Eosinophils 1.9 % (0.0-10.0); %Lymphocytes 33.3 % (21.0-51.0); %Monocytes 8.3 % (0.0-10.0); %Neutrophils 56.1 % (42.0-75.0); Hematocrit 41.1 % (36.0-47.0); Hemoglobin 12.7 g/dL (12.0-16.0); Mean Corpuscular HGB CONC 30.9 g/dL (32.0-36.0); Mean Corpuscular Volume 93.8 fL (78.0-98.0); Mean Platelet Volume 10.9 fL (7.4-10.4); Platelet Count 199 10x3/uL (130-400); RBC Distribution Width 14.3 % (11.5-14.5); Red Blood Cell (RBC) Count 4.38 mill/uL (4.20-5.40)
[2024-08-08] MEDS: FLU (Fluad Triv) TS24-25 (65UP)/MF59C/PF 45 MCG/0.5 ML Syringe IM ONE (07:23)
[2024-08-08 08:22] LABS: Anion Gap 13 mmol/L (10-20); BUN (Urea Nitrogen) 15 mg/dL (9.8-20.1); Calc. Creatinine Clearance 70 mL/min (70-130); Calcium 8.5 mg/dL (7.8-10.44); Carbon Dioxide 21 mmol/L (23-31); Chloride 106 mmol/L (98-107); Estimated GFR 83; Glucose 118 mg/dL (83-110); Potassium 4.1 mmol/L (3.5-5.1); Sodium 136 mmol/L (136-145)
[2024-08-08] MEDS ORDERED: Melatonin 3 MG TAB PO PRN (10:42)
[2024-08-08] MEDS: Lactated Ringer's 1,000 ML IV SCH (12:30)
[2024-08-08] MEDS: Nitrofurantoin Macrocrystal 50 MG CAP PO SCH (19:26)
[2024-08-08] MEDS: QUEtiapine 25 MG TAB PO SCH (19:26)
[2024-08-08] MEDS ORDERED: Nitrofurantoin Macrocrystal 50 MG CAP PO SCH (21:00)
[2024-08-09] MEDS: Haloperidol Lactate 5 MG/ML VIAL IM SCH (07:50)
[2024-08-09] MEDS: QUEtiapine 25 MG TAB PO SCH (15:08)
[2024-08-10 11:41] VITALS: BP 114/70; TEMP 98.5
== END 2024-08-10 11:41 | DRG 56 ==
LOC: ERS 09:47 → T4-A 15:19 → OBSVTOIN 08-08 15:16
PROVIDERS: ADMIT Hospitalist; ATTEND Family Medicine
DX: G30.9 Alzheimer's disease, unspecified (principal); G93.41 Metabolic encephalopathy; F02.818 Dementia in other diseases classified elsewhere, unspecified severity, with other behavioral disturbance; E86.0 Dehydration; Z66 Do not resuscitate; Z88.0 Allergy status to penicillin; Z88.8 Allergy status to other drugs, medicaments and biological substances; K21.9 Gastro-esophageal reflux disease without esophagitis; E11.22 Type 2 diabetes mellitus with diabetic chronic kidney disease; Z90.49 Acquired absence of other specified parts of digestive tract; Z98.51 Tubal ligation status; I48.91 Unspecified atrial fibrillation; E78.5 Hyperlipidemia, unspecified; F32.A Depression, unspecified; Z79.899 Other long term (current) drug therapy
CPT/HCPCS: 36415; 36416; 70450; 71045; 71260; 72125; 74177; 80048; 80053; 80306; 80307; 81001; 82550; 82805; 83605; 83735; 84443; 84484; 85025; 85610; 85730; 87040; 87086; 93005; G0378; J7120; Q9967